=== PATIENT | female | born 1950 | race African-American/Black ===

== ENCOUNTER 2018-07-14 16:22 | Emergency (ER) | payer MEDICARE, OTHER ==
[~2018-07-14] VITALS: Ht 165.1 cm; Wt 80.7 kg
[2018-07-14 16:25] VITALS: BP 156/74
--- NOTE | 2018-07-14 16:47 | PHYS DOC ---
Past Medical History Past Medical History: High Cholesterol, Hypertension, Other Additional Past Medical Histor: chronic back pain Past Surgical History: Other Additional Past Surgical Histo: right breast, dnc Alcohol Use: None Drug Use: None Adult General Chief Complaint Chief Complaint: TOE PROBLEM HPI HPI Patient is a 68 year old female with history of hypertension, high cholesterol, who presents to the ED today complaining of moderate right great toe pain that began 5 days ago after she dropped a frozen juice bottle on her right great toe. Patient states the pain is worse on weight-bearing. She states she's noted an area of yellowness along the nail bed. Denies anything specifically relieving the pain. Review of Systems Review of Systems Constitutional: Denies fever or chills [] Musculoskeletal: Reports right great toe pain[] Integument: Denies rash or skin lesions [] Neurologic: Denies headache, focal weakness or sensory changes [] All other systems were reviewed and found to be within normal limits, except as documented in this note. Allergies Allergies Allergies Coded Allergies Type Severity Reaction Last Updated Verified No Known Drug Allergies 10/31/14 No Physical Exam Physical Exam Constitutional: Well developed, well nourished, no acute distress, non-toxic appearance. [] Skin: Warm, dry, no erythema, no rash. [] Back: No tenderness, no CVA tenderness. [] Extremities: Right great toe with no obvious deformity, there is mild swelling especially along the nail bed yellowness and fluctuance to this area consistent with infection. There is tenderness to the area. There is warmth to the area. +2 right pedal pulse. Adequate sensation to the right toes. Neurologic: Alert and oriented X 3, normal motor function, normal sensory function, no focal deficits noted. [] Psychologic: Affect normal, judgement normal, mood normal. [] Current Patient Data Vital Signs Vital Signs Date Time Temp Pulse Resp B/P (MAP) Pulse Ox O2 Delivery O2 Flow Rate FiO2 07/14/18 16:25 98.2 82 18 156/74 (101) 97 Room Air 98.2 EKG EKG [] Radiology/Procedures Radiology/Procedures Indication: abscess right great toe/paronychia Procedure: The patient was positioned appropriately. Local anesthesia was not applicable. An incision was then made over the apex of the lesion and mild amount of yellow bloody material was expressed. The drainage cavity was irrigated and covered with sterile gauze. The patients tetanus status updated as needed. The patient tolerated the procedure well. Complications: none.[] PROCEDURE: FOOT RIGHT 3V EXAM: Right foot, 3 views. HISTORY: Blunt trauma. COMPARISON: None. FINDINGS: 3 views of the right foot are obtained. There is no acute fracture, dislocation or subluxation. There is a tiny plantar spur. There is enthesopathy at the Achilles tendon insertion. IMPRESSION: No acute osseous finding. Electronically signed by: Gretel Vargas MD (07/14/2018 5:08 PM) [facility] DICTATED and SIGNED BY: GRETEL VARGAS MD DATE: 07/14/18 9332 Course & Med Decision Making Course & Med Decision Making Pertinent Labs and Imaging studies reviewed. (See chart for details) This is a 68-year-old male patient presenting to the ED today with right great toe pain and infection. Patient dropped a bottle of juice on her toe 5 days ago. The toe has paronychia type of infection along the nailbed. The paronychia was drained by me. Tetanus updated. Will be discharged on cephalexin. X-ray of the right foot interpreted by radiologist are negative for any acute findings. Patient instructed to soak the right foot in warm water with Epsom salts twice a day. Tylenol/Motrin for pain and follow-up with primary care doctor in one week. Provided return precautions. Dragon Disclaimer Dragon Disclaimer This electronic medical record was generated, in whole or in part, using a voice recognition dictation system. Departure Departure Impression: Primary Impression: Paronychia of great toe, right Additional Impression: Contusion of right foot Disposition: HOME, SELF-CARE Condition: STABLE Referrals: NO PCP (PCP) Follow up in one week with your doctor Patient Instructions: Contusion, Paronychia, [id number] Additional Instructions: You were evaluated in the emergency room for right foot contusion and noted to have infection along the nailbed. Please soak the right foot in warm water with Epsom salts twice a day. Please take the prescribed medications as ordered. Ensure you complete them. Follow-up with your own doctor in 1-2 weeks. Scripts Diclofenac Sodium (DICLOFENAC SODIUM) 50 Mg Tablet.dr 1 TAB PO BID, #20 TAB 0 Refills Prov: YIN HAYNES APRN 07/14/18 Cephalexin (CEPHALEXIN) 500 Mg Tablet 1 TAB PO QID, #40 TAB Prov: YIN HAYNES ASSOCIATE PROFESSOR OF [employer]UDIES 07/14/18 Problem Qualifiers Additional Impression: Contusion of right foot Encounter type: initial encounter Qualified Codes: S90.31XA - Contusion of right foot, initial encounter YIN HAYNES ASSOCIATE PROFESSOR [employer] STUDIES Jul 14, 2018 16:47
--- NOTE | 2018-07-14 17:11 | RAD ---
EXAM: Right foot, 3 views. HISTORY: Blunt trauma. COMPARISON: None. FINDINGS: 3 views of the right foot are obtained. There is no acute fracture, dislocation or subluxation. There is a tiny plantar spur. There is enthesopathy at the Achilles tendon insertion. IMPRESSION: No acute osseous finding. Electronically signed by: Gretel Vargas MD (07/14/2018 5:08 PM) [facility]
[2018-07-14] MEDS ORDERED: HYDROcodone/APAP 5/325MG 1 TAB TABLET PO ONE (17:15)
[2018-07-14] MEDS ORDERED: DIPHTH,PERTUSS(ACELL),TET TOX 0.5 ML DISP.SYRIN. VAX IM ONE (17:15)
[2018-07-14] MEDS ORDERED: CEPH500T PO (17:16)
[2018-07-14] MEDS ORDERED: DICL50TA4 PO (17:16)
== END 2018-07-14 17:34 | disposition home or self-care (01) ==
LOC: ER 16:22
DX: S90.31XA Contusion of right foot, initial encounter (principal); L03.031 Cellulitis of right toe; E78.00 Pure hypercholesterolemia, unspecified; I10 Essential (primary) hypertension; G89.29 Other chronic pain; W22.8XXA Striking against or struck by other objects, initial encounter; Y93.89 Activity, other specified; Y92.89 Other specified places as the place of occurrence of the external cause; Y99.8 Other external cause status
CPT/HCPCS: 10060; 73630; 90471; 90715; 99284

== ENCOUNTER 2020-12-05 17:15 | Emergency (ER) | payer BC, OTHER ==
[~2020-12-05] VITALS: Ht 165.1 cm; Wt 81.8 kg
[~2020-12-05 17:15] MED LIST: CEPH500T PO; DICL50TA4 PO
[2020-12-05] MEDS ORDERED: KETOROLAC 15 MG/ML VIAL. IM ONE (18:00)
[2020-12-05] MEDS ORDERED: ORPHENADRINE CITRATE 60 MG/2 ML VIAL. IM ONE (18:00)
[2020-12-05 18:05] VITALS: BP 127/69
--- NOTE | 2020-12-05 18:06 | PHYS DOC ---
Past Medical History Past Medical History: Anemia, Diabetes-Type II, High Cholesterol, Hypertension, Other Additional Past Medical Histor: CHRONIC BACK PAIN Past Surgical History: Other Additional Past Surgical Histo: CYST REMOVAL Smoking Status: Never Smoker Alcohol Use: None Drug Use: None General Adult EDM: Chief Complaint: BACK PAIN - NO INJURY HPI: HPI: Patient is a 70 year old female with chronic back pain who presents with worsening back pain today. Patient states that she visits the emergency department here and also at the [facility] when she has "spasms." Patient states that her primary care doctor was Dr. Erlinda Delatorre, who managed her pain medications. She switched insurance last year, and has not obtained new primary care provider. She has never had a pain management doctor. She is unsure what her diagnosis is or the etiology of her chronic pain. Patient denies any injury or trauma, bowel or bladder incontinence, pain radiating to her legs, paresthesias, fever, chills. Patient has no other complaints at this time. Review of Systems: Review of Systems: 12 systems reviewed. ROS negative except as mentioned in HPI. Heart Score: C/O Chest Pain: No Current Medications: Current Medications Medications (Trade) Dose Ordered Sig/Darin Start Time Stop Time Status Last Admin Dose Admin Ketorolac Tromethamine (Toradol 15mg Vial) 15 mg 1X ONCE 12/05/20 18:00 12/05/20 18:01 Orphenadrine Citrate (Norflex) 60 mg 1X ONCE 12/05/20 18:00 12/05/20 18:01 Allergies: Allergies: Allergies Coded Allergies Type Severity Reaction Last Updated Verified No Known Drug Allergies 10/31/14 No Physical Exam: PE: Constitutional: Well developed, well nourished, non-toxic appearance. Patient is quiet and appears comfortable until I begin to ask her about her history, at which time her answers are interrupted by shouts due to pain. When I leave the exam room, she does not shout in pain anymore. Neck: Normal range of motion, no tenderness. Cardiovascular: Heart rate regular rhythm, no murmur. Lungs & Thorax: Bilateral breath sounds clear to auscultation. Skin: Warm, dry, no erythema, no rash. Back: Bilateral paraspinal tenderness to low back, no bony tenderness, no CVA tenderness. Extremities: No tenderness, no cyanosis, no clubbing, ROM intact, no edema. Neurologic: Alert and oriented x3, normal motor function, normal sensory function, no focal deficits noted. Current Patient Data: Vital Signs: Vital Signs Date Time Temp Pulse Resp B/P (MAP) Pulse Ox O2 Delivery O2 Flow Rate FiO2 12/05/20 17:20 98.3 75 16 153/71 (98) 96 Room Air 98.3 Course & Med Decision Making: Course & Med Decision Making Pertinent Labs and Imaging studies reviewed. (See chart for details) Patient seems to be having muscle spasms at this time. She was provided with Norflex and ketorolac here in the department. On reevaluation, she states that her pain is significantly improved. She will be provided with a prescription for Norflex p.o. and instructed to take ibuprofen every 6-8 hours. She will also be provided with a referral to Dr. Landaverde for pain management. Patient understands and is agreeable to discharge plan. Dragon Disclaimer: Dragon Disclaimer: This electronic medical record was generated, in whole or in part, using a voice recognition dictation system. Departure Departure Impression: Primary Impression: Acute exacerbation of chronic low back pain Disposition: HOME / SELF CARE / HOMELESS Condition: STABLE Referrals: ERLINDA SALES JR, MD (PCP) KYLAH LANDAVERDE MD Patient Instructions: Back Pain, Adult, [id number] Additional Instructions: As discussed, it is important for you to obtain both a primary care provider as well as a pain management doctor. You may call Dr. Sales as for a referral for a primary care provider that we will take your insurance if he does not anymore. You are provided with contact information for Dr. Landaverde, who is a bait painter. Please return to the emergency department if your symptoms worsen or you develop new symptoms. Scripts Orphenadrine Citrate (ORPHENADRINE CITRATE) 100 Mg Tablet.er 1 TAB PO PRN Q12HR PRN for MUSCLE SPASMS, #10 TAB 1 Refill Prov: ARCADIO WATSON 12/05/20 ARCADIO WATSON Dec 05, 2020 18:06
[2020-12-05] MEDS ORDERED: ORPH100T PO (18:45)
== END 2020-12-05 18:55 | disposition home or self-care (01) ==
LOC: ER 17:15
DX: G89.29 Other chronic pain (principal); M54.50 Low back pain, unspecified; E11.9 Type 2 diabetes mellitus without complications; E78.00 Pure hypercholesterolemia, unspecified; I10 Essential (primary) hypertension
CPT/HCPCS: 96372; 99284; J1885; J2360